=== PATIENT | female | born 1945 | race Caucasian/White ===

== ENCOUNTER 2024-07-23 11:38 | Outpatient (CLI) | payer BC, MEDICARE | END 2024-07-23 23:59 | disposition home or self-care (01) | LOC: RAD 11:38 | PROVIDERS: ATTEND Registered Nurse | DX: R07.81 Pleurodynia (principal); M41.84 Other forms of scoliosis, thoracic region; M47.814 Spondylosis without myelopathy or radiculopathy, thoracic region | CPT/HCPCS: 71046 ==